=== PATIENT | male | born 1985 | race Caucasian/White ===

== ENCOUNTER 2022-10-30 01:28 | Emergency (ER) | payer OTHER, BC ==
[~2022-10-30] VITALS: Ht 182.9 cm; Wt 86.2 kg
[2022-10-30 01:40] VITALS: BP 146/91
--- NOTE | 2022-10-30 01:57 | ED Upper Extremity ---
General Chief Complaint: Laceration Stated Complaint: LEFT HAND PUCTURE WOUND Nursing Triage Note: SCREWDRIVER SLIPPED PUNCTURING LEFT HAND. NO BLEEDING AT THIS TIME. UNKNOWN LAST TETANUS SHOT. 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 AND PUNCTURED HIS LEFT HAND AT BASE OF THUMB PT FINISHED HIS SHIFT NO PARESTHESIAS OR MOTOR DEFICITS PT IS RIGHT HANDED NO PROBLEMS OR PRIOR INJURIES TO THIS HAND LAST TETANUS IS UNKNOWN NO CHRONIC MEDICAL PROBLEMS PCP: BRY-CALLY, Allergies and Home Medications Allergies Coded Allergies: No Known Drug Allergies (Unverified , 10/30/22) Patient Home Medication List Home Medication List Reviewed: Yes Sulfamethoxazole/Trimethoprim (Bactrim Ds Tablet) 1 Each Tablet, 1 EACH PO BID Prescribed by: HANNAH THOMAS on 10/30/22 0232 Review of Systems Constitutional: no symptoms reported Musculoskeletal: see HPI Skin: see HPI Psychiatric/Neurological: No Symptoms Reported Past Iwemvbx-Aegluh-Kyqqve Hx Patient Social History Tobacco Use?: No Substance use?: No Alcohol Use?: No Pt feels they are or have been: No Immunizations Up To Date Tetanus Booster (TDap): Unknown Past Medical History Surgery/Hospitalization HX: VASECTOMY Surgeries: Yes Vasectomy Respiratory: No Cardiac: No Neurological: No Genitourinary: No Gastrointestinal: No Musculoskeletal: No Endocrine: No HEENT: No Cancer: No Psychosocial: No Integumentary: No Blood Disorders: No Physical Exam Vital Signs Vital Signs - First Documented 10/30/22 01:40 Temp 36.7 Pulse 76 Resp 16 B/P (MAP) 146/91 (109) Pulse Ox 97 O2 Delivery Room Air Capillary Refill : Less Than 3 Seconds Height, Weight, BMI Height: '" Weight: lbs. oz. kg; 25.00 BMI Method: General Appearance: WD/WN, no apparent distress Hand: Left (LEFT HAND WITH PUNCTURE SITE TO BASE OF LEFT THUMB IN WEB BETWEEN THUMB AND INDEX FINGER. NO BLEEDING. NO SWELLING OR BRUISING. FULL ROM. SENSORY / VASCULAR INTACT. ) Neurologic/Tendon: normal sensation, normal motor functions, normal tendon functions Neurologic/Psychiatric: no motor/sensory deficits, alert, normal mood/affect, oriented x 3 Skin: normal color, warm/dry Progress/Results/Core Measures Results/Orders My Orders Orders - HANNAH THOMAS DO Hand, Left, 3 Views (10/30/22 01:49) Dipht/Pertuss(Acell)/Tet Adult (Dipht/Pe (10/30/22 02:00) Rx-Trimeth/Sulfameth Ds Tab (Rx-Bactrim/ (10/30/22 02:29) Rx-Mupirocin 2% Oint (Rx-Bactroban) (10/30/22 02:29) Wound Dressing-Ed (10/30/22 02:29) Medications Given in ED Current Medications Medications Dose Ordered Sig/Radha Route Start Time Stop Time Status Last Admin Dose Admin Diphtheria/ Tetanus/Acell Pertussis 0.5 ml ONCE ONCE IM 10/30/22 02:00 10/30/22 02:01 DC 10/30/22 01:57 0.5 ML Vital Signs/I&O 10/30/22 01:40 Temp 36.7 Pulse 76 Resp 16 B/P (MAP) 146/91 (109) Pulse Ox 97 O2 Delivery Room Air 2 Blood Pressure Mean: 109 Progress Progress Note : Progress Note DPT VACCINATION GIVEN WOUND CLEANSED AND DRESSED DISCUSSED ANTICIPATED COURSE, WOUND CARE, MEDICATIONS, NEED FOR FOLLOW UP AND RETURN PRECAUTIONS Diagnostic Imaging Comments XRAYS LEFT HAND--NO ACUTE PROCESS, PENDING RADIOLOGIST REVIEW Reviewed: Reviewed by Me Departure Impression Primary Impression: Puncture wound of left hand Additional Impression: Cldnxmiisb-hghatkyum-ajkaetp (DPT) vaccination administered at current visit Disposition: HOME, SELF-CARE Condition: Stable Departure-Patient Inst. Decision time for Depature: 02:30 Referrals: RHONDA CORTES MD (PCP/Family) Primary Care Physician Patient Instructions: Wound Care ED, Diphtheria and Tetanus Toxoids, and Acellular Pertussis Vaccine Add. Discharge Instructions: SOAK HAND IN WARM SOAPY WATER TWICE A DAY, APPLY ANTIBIOTIC OINTMENT AND FRESH DRESSING TWICE A DAY TYLENOL AND MOTRIN NEEDED FOR PAIN FOLLOW UP WITH [facility] TOMORROW FOR FURTHER CARE All discharge instructions reviewed with patient and/or family. Voiced understanding. Scripts Sulfamethoxazole/Trimethoprim (Bactrim Ds Tablet) 1 Each Tablet 1 EACH PO BID, #20 TAB Prov: HANNAH THOMAS DO 10/30/22 HANNAH THOMAS DO Oct 30, 2022 01:57
[2022-10-30] MEDS ORDERED: Tetanus/Diphtheria/Pertussis (Acell) ADULT Vaccine 0.5 ML IM ONE (02:00)
[2022-10-30] MEDS ORDERED: RX-TRIMETH/SULFA. 160-800 MG (BACTRIM DS) TAB PPK#2 PO STA (02:29)
[2022-10-30] MEDS ORDERED: RX-MUPIROCIN (BACTROBAN) 2% OINT 22 GM TUBE TOP STA (02:29)
[2022-10-30] MEDS ORDERED: SULF1TAB38 PO (02:32)
--- NOTE | 2022-10-30 06:53 | Diagnostic Imaging Report ---
CLINICAL HISTORY: Left hand pain. Injury. COMPARISON: None. TECHNIQUE: 3 views of the left hand. FINDINGS: There is no acute fracture or dislocation of the left hand. Alignment is anatomic. The imaged joint spaces are preserved. No focal osseous lesions. IMPRESSION: 1. No acute fracture or dislocation in the left hand. Dictated by: Dictated on workstation # [id number]
== END 2022-10-30 02:35 | disposition home or self-care (01) ==
LOC: EDUNIT# 01:28 → ER 01:35
DX: S61.432A Puncture wound without foreign body of left hand, initial encounter (principal); Z23 Encounter for immunization; W27.0XXA Contact with workbench tool, initial encounter; Y92.59 Other trade areas as the place of occurrence of the external cause; Y99.0 Civilian activity done for income or pay
CPT/HCPCS: 73130; 90715